=== PATIENT | female | born 1935 | race Caucasian/White ===

== ENCOUNTER → 2020-07-21 | Outpatient (CLI) | payer MEDICARE ==
--- NOTE | 2020-08-16 08:07 | REP ---
DUPLEX DOPPLER VENOUS ULTRASOUND LEFT LOWER EXTREMITY HISTORY: Claudication, left leg; mapping for lower extremity bypass graft. TECHNIQUE: Real-time compression and duplex Doppler interrogation of the left lower extremity venous system is performed. FINDINGS: There is no evidence of deep vein thrombosis. The common femoral, superficial femoral, and popliteal veins are fully compressible with transducer pressure and demonstrate normal spontaneous and phasic flow. Imaging of the left greater saphenous vein demonstrates no thrombus. Greater saphenous vein measures 4 mm in the proximal mid thigh, 3 mm in the distal thigh and at the knee, 2 mm in the calf diffusely, and about 3 mm at the level of the ankle. The lesser saphenous vein measures 3 mm proximally and 2 mm in the mid aspect. The peripheral lesser saphenous vein is not visualized. MTDD
== END ==
LOC: M RAD 10:39
PROVIDERS: ATTEND Surgery Vascular Surgery
DX: I70.212 Atherosclerosis of native arteries of extremities with intermittent claudication, left leg (principal); I70.92 Chronic total occlusion of artery of the extremities